=== PATIENT | female | born 1960 | race Two or more races ===

== ENCOUNTER 2025-04-27 11:45 | Inpatient (IN) | payer BC, OTHER ==
[2025-04-23 15:13] LABS: Urine Protein, UAD Negative (Negative)
[2025-04-23 15:14] LABS: Hematocrit 41.3 % (36.0-46.0); Hemoglobin 14.4 g/dL (12.2-16.2); Mean Corpuscular Hemoglobin 30.5 pg (28.0-32.0); Mean Corpuscular Volume 87.7 fL (80.0-100.0); Nucleated Red Blood Cells % 0.1 %
[2025-04-23 15:27] LABS: INR 1.01 (0.9-1.15); Partial Thromboplastin Time 26.9 SEC (24.5-34.5); Prothrombin Time 10.7 sec (9.3-11.8)
[2025-04-23 15:43] LABS: Alanine Aminotransferase 15 U/L (7-40); Albumin 4.8 g/dL (3.2-4.8); Alkaline Phosphatase 112 U/L (46-116); Anion Gap 8 (5-15); BUN/Creatinine Ratio 18.2 (10.0-20.0); Blood Urea Nitrogen 12 mg/dL (9-23); Calcium 10.3 mg/dL (8.7-10.4); Carbon Dioxide 27 mmol/L (20-31); Chloride 103 mmol/L (98-107); Glucose 90 mg/dL (74-106); Potassium 4.0 mmol/L (3.5-5.1); Sodium 138 mmol/L (136-145); Total Protein 7.2 g/dL (5.7-8.2)
[2025-04-23 15:44] LABS: Bilirubin, Total 0.8 mg/dL (0.2-1.0)
[~2025-04-27] VITALS: Ht 153 cm; Wt 92.5 kg
[~2025-04-27 11:45] MED LIST: AMIO200T33 PO; AML5T PO; APIX5TAB PO; EZET10TA22 PO; METF-371 PO; METO-289 PO
[2025-04-27] MEDS: ceFAZolin 2 GM/D5W50ml 50 ML IV ONE (12:08)
[2025-04-27] MEDS: TRANEXAMIC ACID 20 ML ONE (13:02)
[2025-04-27] MEDS: VANCOMYCIN HCL 1000 MG VL ONE (13:04)
[2025-04-27] MEDS: CEFEPIME 1GM/ 50ML 50 ML IV ONE (13:17)
[2025-04-27] MEDS: BUPIVACAINE 0.5% P/F INJ 10 ML VIAL ONE (13:35)
[2025-04-27] MEDS ORDERED: fentaNYL CITRATE 100 MCG/2 ML VL ONE (13:38)
[2025-04-27] MEDS ORDERED: MIDAZOLAM HCL 2MG/2ML 2ml VIAL (1mg/ml) ONE (13:38)
[2025-04-27] MEDS: TETRACAINE 1% INJ 2 ML VIAL IJ ONE (13:42)
[2025-04-27] MEDS: LACTATED RINGER'S 1,000 ML IV SCH (13:45)
[2025-04-27] MEDS ORDERED: ceFAZolin 1GM/50ML 50 ML IV SCH (13:45)
[2025-04-27] MEDS ORDERED: HYDROmorphone HCL 2 MG/ML VL/or syr IV PRN ×2 (13:45→15:00)
[2025-04-27] MEDS ORDERED: NITROGLYCERIN 0.4 MG SL TAB SL PRN (13:45)
[2025-04-27] MEDS ORDERED: DEXTROSE (50%) 50ML SYRG IV PRN (13:45)
[2025-04-27] MEDS ORDERED: MORPHINE SULFATE INJ 2 MG/ml SYRG IV PRN (13:45)
--- NOTE | 2025-04-27 13:45 | DVHOP2 ---
Operative Report - 2 Report Details Date: 04/27/25 Preop Diagnosis: Right hip osteoarthritis Postop Diagnosis: Right hip osteoarthritis Surgeon: Randall Dominguez MD Manufacturing Production Manager: Praful FORD/ Wilbur CHRISTIANSEN Anesthesiologist: Stephanie GOOD Anesthesia: Regional Implant: [employer] R3 acetabulum cup size 50 30 mm screw x 2 size 3 polaris std offset dual mobility 36+0 Consent: The patient was informed of the risks and benefits of the procedure. These include but are not limited to complications of anesthesia, postoperative infection, incomplete relief of symptoms, recurrence of symptoms, damage to blood vessels, nerves and tendons, deep venous thrombosis, pulmonary embolism and possible need for repeat surgery in the future. Estimated Blood Loss: 300 cc Name of Procedure Performed Right total hip replacement with computer navigation Procedure Details Procedure Details: FINDINGS: Extensive degenerative disease with grade IV changes, patient short about 1/2 inch INDICATION: This patient has failed non-operative treatments for hip arthritis and is now indicated for a total hip replacement. Preoperatively in the waiting area as well as in the office, I had a long discussion with the patient regarding the plan, the expected outcome, the risks, benefits, and alternatives of surgery. The risks include, but are not limited to, infection (which may require future surgery and removal of implants) , bleeding (which may require a transfusion), damage to nerves, arteries, veins, tendons, muscles and other adjacent structures. Also discussed the possibilities of dislocation, leg-length discrepancy, intraoperative fractures, implant loosening, heterotopic bone formation, and revision for variety of reasons, and medical complications etc. This was discussed at length and consent has been obtained. DESCRIPTION OF PROCEDURE: In the preoperative holding area, the consent was reviewed and the appropriate extremity was verified by the patient and marked with my initials. The patient was then transferred to the operating theatre. Appropriate anesthetia was induced. All bony prominences were well padded. A time out was performed verifying the side and site of surgery according to standard protocol. Preoperative antibiotics were given. Tranexamic acid was given. The patient was then placed in the lateral decubitus position and fixed with rigid pelvic fixation. All bony prominences were well padded and an axillary roll was placed. The affected hip area was then prepped and draped in the usual sterile fashion. Using an 11-blade, three stab incisions were made over the iliac crest. Two threaded guide pins were inserted into the crest confirming to be in bone. The pelvic array was attached to the pins and tightened. We made a standard posterolateral incision sharply through the skin and carried our dissection down through subcutaneous tissue to the underlying fascia achieving hemostasis where necessary. We incised the fascia in line with our incision. We identified and protected the sciatic nerve. We took down the external rotators and hip capsule from their insertion into the greater trochanter, tagged them and retracted them posteriorly for further protection of the sciatic nerve. A check point was placed into the greater trochanter and the hip center and leg length length were registered. We then dislocated the femoral head and performed an osteotomy of the femoral neck in accordance with our pre-operative plan. The labrum was excised with a long-handle knife, and we exposed the acet abular rim and cotyloid fossa. We then reamed up to our final size in accordance with the preoperative plan. We copiously irrigated and then impacted the final cup into position. We confirmed the position with the robotic navigation guidance. We placed two acetabular dome screws into the posterior-superior quadrant in the usual fashion. We irrigated the cup and impacted the liner, checking to make sure it was well seated. Attention was then turned to the femur. We used a box osteotome followed by a canal finder to gain entry to the canal. Intramedullary contents were suctioned and care was taken to ensure they did not touch the tissues. We sequentially reamed until good cortical contact, then broached up to out final size. We trialed with the appropriate femoral neck and head and reduced the hip. The hip was taken through a full range of motion. The hip soft tissues were examined in extension and external rotation, the anterior capsule and IT band were palpated, and combined anteversion was determined to be 40 degrees. The hip was stable at maximum flexion, at 90 degrees of flexion and 45 degrees of internal rotation and the position of sleep. Leg lengths were restored as shown using the computer navigation, and the trial LTC matched preoperative and intraoperative templating. The hip was then dislocated and trial components removed. We copiously irrigated the wound and impacted the final femoral stem into position. The femoral head was impacted onto a clean and dry trunion and confirmed to be seat ed. The hip was reduced ensuring to tissues in the acetabular cup. We again brought it through a full functional range of motion and there was no evidence for dislocation, instability, or impingement. The checkpoint was removed. A dilute betadine solution (17.5mL in 500mL saline) was used to wash the joint and left to sit for 3 minutes. This was then irrigated out with copious amounts of pulse lavage. We sprinkled 1g vancomycin powder below the fascia and 1g above the fascia. We copiously irrigated the wound and soft tissues. The short external rotators and capsule were repaired to the greater trochanter through drill holes, and the quadratus was repaired. We palpated the sciatic nerve in continuity without tension. The fascia was closed with vicryl and a barbed suture. We closed over the fascia with vicryl suture and re-approximated the skin with angel. A sterile dressing was placed. We returned the patient to the supine position. We verified all lower extremity compartments were soft and compressible and that we had intact distal pulses and checked our leg length yazidism. We took an AP Pelvis in the operating room, which we reviewed prior to transfer. The patient was then transferred to the recovery room in stable condition. Condition Good Disposition Still a Patient RANDALL DOMINGUEZ MD Apr 27, 2025 13:45
[2025-04-27] MEDS ORDERED: KETAMINE 50mg/ML 1ml syringe ONE (14:23)
[2025-04-27] MEDS: BUPIVACAINE 0.25% INJ 50ML VIAL ONE (14:33)
[2025-04-27] MEDS: MORPHINE SULF PF 5 MG/10 ML VIAL ONE (14:34)
[2025-04-27] MEDS: KETOROLAC TROMETH 30 MG/ML 1ML VIAL ONE (14:35)
[2025-04-27] MEDS ORDERED: hydrALAZINE HCL 20 MG/ML VL IV PRN (15:00)
[2025-04-27] MEDS ORDERED: MIDAZOLAM HCL 2MG/2ML 2ml VIAL (1mg/ml) IV PRN (15:00)
[2025-04-27] MEDS: ONDANSETRON HCL 4 MG/2 ML VIAL IV ONE (15:00)
[2025-04-27] MEDS: ACCU-CHEK COMFORT CURVE STRIP VI ONE (15:00)
[2025-04-27] MEDS ORDERED: MORPHINE SULFATE 4 MG/ML SYR/VIAL IV PRN (15:00)
[2025-04-27 15:40] VITALS: PULSE 49; RESP 12; O2SAT 100
[2025-04-27 15:50] VITALS: PULSE 49; RESP 13; O2SAT 100
[2025-04-27] MEDS: OXYCODONE W/ ACETAMINOPHEN 5/325MG TABLET PO PRN (15:51)
--- NOTE | 2025-04-27 16:14 | DVH ---
CLINICAL INDICATION: sp Right LIZA TECHNIQUE: XY PELVIS AP Comparison: None FINDINGS/IMPRESSION: : There is no evidence of acute fracture or dislocation. Expected findings post right hip arthroplasty. Moderate to severe degenerative changes of the left hip.
[2025-04-27 16:40] VITALS: PULSE 49; RESP 12; O2SAT 100
[2025-04-27] MEDS: InsuLIN REG 1unit/0.01ml Soln (100units/ml) SC SCH ×2 (17:00→21:30)
[2025-04-27] MEDS: ACCU-CHEK COMFORT CURVE STRIP VI SCH (17:04)
[2025-04-27 17:20] VITALS: BP 133/82; PULSE 58; RESP 18; TEMP 97.3; O2SAT 96
[2025-04-27 20:00] VITALS: PULSE 57; PULSE 62; RESP 18; O2SAT 95
[2025-04-27] MEDS: ONDANSETRON HCL 4 MG/2 ML VIAL IV PRN (20:09)
[2025-04-27] MEDS: ceFAZolin 1GM/50ML 50 ML IV SCH (20:09)
[2025-04-27 21:00] VITALS: BP 114/71; PULSE 62; RESP 20; TEMP 97.1; O2SAT 94
[2025-04-27] MEDS: DOCUSATE SOD 100 MG CAP PO SCH (21:23)
[2025-04-27] MEDS: AMIODARONE HCL 200 MG TAB PO SCH (21:23)
[2025-04-28] VITALS (8 sets, daily range): BP systolic 103–138; BP diastolic 60–73; PULSE 64–83; RESP 16–20; TEMP 97.2–98.2; O2SAT 94–97
[2025-04-28] MEDS: METOPROLOL SUCCINATE XL 50 MG TAB PO SCH (06:09)
[2025-04-28 06:11] LABS: Hematocrit 35.0 % (36.0-46.0); Hemoglobin 12.2 g/dL (12.2-16.2)
[2025-04-28 06:33] LABS: Albumin 3.9 g/dL (3.2-4.8); Anion Gap 9 (5-15); BUN/Creatinine Ratio 21.7 (10.0-20.0); Bilirubin, Total 0.8 mg/dL (0.2-1.0); Blood Urea Nitrogen 15 mg/dL (9-23); Calcium 9.6 mg/dL (8.7-10.4); Carbon Dioxide 24 mmol/L (20-31); Chloride 106 mmol/L (98-107); Potassium 4.4 mmol/L (3.5-5.1); Sodium 139 mmol/L (136-145); Total Protein 6.0 g/dL (5.7-8.2)
[2025-04-28 06:35] LABS: Alanine Aminotransferase 198 U/L (7-40); Alkaline Phosphatase 146 U/L (46-116); Glucose 160 mg/dL (74-106)
--- NOTE | 2025-04-28 07:59 | DVHPN2 ---
Progress Note Date Seen: Apr 28, 2025 Medical Necessity Reason Pt with a Central, PICC or Fol: No Objective vital signs Vital Sign Date Time Temp Pulse Resp B/P (MAP) Pulse Ox O2 Delivery O2 Flow Rate FiO2 04/28/25 06:09 83 103/64 04/28/25 05:00 97.6 20 94 97.6 04/27/25 20:00 Room Air* 0 21 Total Intake and Output 04/27/25 04/27/25 04/28/25 15:00 23:00 07:00 Intake Total 100 ml 50 ml 300 ml Balance 100 ml 50 ml 300 ml medications Current Medications Medications Dose Ordered Sig/Augustin Route Start Time Stop Time Status Last Admin Dose Admin Cefepime HCl 50 ml @ 12.5 mls/hr DAILY IV 04/28/25 10:00 Amiodarone HCl 100 mg BID PO 04/27/25 22:00 04/27/25 21:23 100 MG Amlodipine Besylate 5 mg DAILY PO 04/28/25 10:00 Apixaban 5 mg BID PO 04/28/25 22:00 EZETIMIBE 10 mg DAILY PO 04/28/25 10:00 Metoprolol Succinate 50 mg QAM PO 04/28/25 07:00 Lactated Ringer's 1,000 ml @ 100 mls/hr Q10H IV 04/27/25 13:45 Cefazolin Sodium 50 ml @ 50 mls/hr Q6H IV 04/27/25 13:45 04/28/25 02:44 Cancel Oxycodone/ Acetaminophen 1 tab Q4HP PRN PO 04/27/25 13:45 04/27/25 15:51 1 TAB Hydromorphone HCl 1 mg Q2HP PRN IV 04/27/25 13:45 Ondansetron HCl 4 mg Q6HP PRN IV 04/27/25 13:45 04/27/25 20:09 4 MG Docusate Sodium 100 mg Q12HR PO 04/27/25 22:00 04/27/25 21:23 100 MG Nitroglycerin 0.4 mg Q5MINP PRN SL 04/27/25 13:45 Morphine Sulfate 2 mg Q30M PRN IV 04/27/25 13:45 Diagnostic Test (Pha) 1 strip ACHS 04/27/25 17:00 04/28/25 06:34 1 STRIP Insulin Human Regular HS SC 04/27/25 22:00 Insulin Human Regular AC SC 04/27/25 17:00 Dextrose 50 ml UD PRN IV 04/27/25 13:45 Cefazolin Sodium 50 ml @ 50 mls/hr Q6H IV 04/27/25 19:45 04/28/25 08:44 04/28/25 06:57 50 MLS/HR Examination: GENERAL:Normal, MSK:Abnormal laboratory and microbiology Laboratory Tests 04/28/25 05:43 04/23/25 15:00 Test 04/28/25 05:43 Range/Units Serum Glucose 160 H 74-106 mg/dL Problem List/Assessment/Plan Problem List/Assessment/Plan 64 YEAR OLD FEMALE WHO IS S/P RIGHT LIZA POD 1 1. PAIN CONTROL 2. PHYSICAL THERAPY 3. DVT PPX 4. D/C PLANNING FOR HOME TOMORROW WITH HOME HEALTH AND IN HOME PT Plan discussed with: Patient Date of Service: Apr 28, 2025 Billing Provider: PAULETTE DOMINGUEZ MD Common Visit Codes: NOT BILLABLE MELANI DE LA O NP Apr 28, 2025 07:59
[2025-04-28] MEDS: CEFEPIME 1GM/ 50ML 50 ML IV SCH (09:31)
[2025-04-28] MEDS: EZETIMIBE 10 MG TAB PO SCH (09:33)
[2025-04-28] MEDS ORDERED: HYDROmorphone HCL 2 MG/ML VL/or syr IV PRN (10:45)
[2025-04-28] MEDS ORDERED: DEXTROSE (50%) 50ML SYRG IV PRN (10:45)
--- NOTE | 2025-04-28 10:46 | DVHINCON2 ---
Date Seen: Apr 28, [address] DOMINGUEZ Family History: Hypertension Allergies: Coded Allergies: NO KNOWN ALLERGIES (Unverified , 04/23/25) Home Meds Reported Medications Metformin Hydrochloride (Metformin Hcl) 850 Mg Tab, 850 MG PO DAILY, TAB 04/23/25 Ezetimibe (Zetia) 10 Mg Tab, 10 MG PO DAILY, TAB 04/23/25 Amlodipine Besylate (NORVASC TABLET) 5 Mg Tb, 5 MG PO DAILY, TAB 04/23/25 Apixaban Base (ELIQUIS) 5 Mg Tab, 5 MG PO BID, TAB 04/23/25 Amiodarone Hcl (Amiodarone Hcl) 200 Mg Tab, 0.5 TAB PO BID, TAB 04/23/25 Metoprolol Succinate (Metoprolol Succinate Er) 50 Mg Tab, 50 MG PO QAM, TAB 04/23/25 Current Medications Current Medications Medications (Trade) Dose Ordered Sig/Augustin Route PRN Reason Start Time Stop Time Status Last Admin Cefepime HCl 50 ml @ 12.5 mls/hr DAILY IV 04/28/25 10:00 04/28/25 09:31 Amiodarone HCl (Cordarone Tablet) 100 mg BID PO 04/27/25 22:00 04/28/25 09:32 Amlodipine Besylate (Norvasc Tablet) 5 mg DAILY PO 04/28/25 10:00 04/28/25 09:32 Apixaban (Eliquis) 5 mg BID PO 04/28/25 22:00 EZETIMIBE (Zetia) 10 mg DAILY PO 04/28/25 10:00 04/28/25 09:33 Metoprolol Succinate (Toprol Xl) 50 mg QAM PO 04/28/25 07:00 Lactated Ringer's 1,000 ml @ 100 mls/hr Q10H IV 04/27/25 13:45 Cefazolin Sodium 50 ml @ 50 mls/hr Q6H IV 04/27/25 13:45 04/28/25 02:44 Cancel Oxycodone/ Acetaminophen (Percocet 5/ 325MG Tablet) 1 tab Q4HP PRN PO MODERATE PAIN 04/27/25 13:45 04/27/25 15:51 Hydromorphone HCl (Dilaudid Injection) 1 mg Q2HP PRN IV SEVERE PAIN (7-10 PAIN SCALE) 04/27/25 13:45 Ondansetron HCl (Zofran) 4 mg Q6HP PRN IV NAUSEA / VOMITING 04/27/25 13:45 04/27/25 20:09 Docusate Sodium (Colace Capsule) 100 mg Q12HR PO 04/27/25 22:00 04/28/25 09:32 Nitroglycerin (Ntrostat Sublingual) 0.4 mg Q5MINP PRN SL FOR CHEST PAIN 04/27/25 13:45 Morphine Sulfate 2 mg Q30M PRN IV FOR CHEST PAIN 04/27/25 13:45 Diagnostic Test (Pha) (Accu-Chek Comfort Curve T) 1 strip ACHS 04/27/25 17:00 04/28/25 06:34 Insulin Human Regular (InsuLIN R) HS SC 04/27/25 22:00 Insulin Human Regular (InsuLIN R) AC SC 04/27/25 17:00 Dextrose 50 ml UD PRN IV Blood Sugar LESS THAN 60 04/27/25 13:45 Hydralazine HCl (Apresoline Injection) 5 mg Q10M PRN IV SBP>160 04/27/25 15:00 04/27/25 15:51 DC Morphine Sulfate 2 mg Q2HPRN PRN IV BREAKTHROUGH PAIN (7-10) 04/27/25 15:00 04/27/25 15:08 DC Midazolam HCl (Versed Injection) 1 mg Q10M PRN IV ANXIETY 04/27/25 15:00 04/27/25 15:41 DC Ephedrine Sulfate (ePHEDrine SULFATE) 10 mg Q10M PRN IV SBP LESS THAN 90 04/27/25 15:00 04/27/25 15:41 DC Hydromorphone HCl (Dilaudid Injection) 0.5 mg Q10M PRN IV SEVERE PAIN (7-10 PAIN SCALE) 04/27/25 15:00 04/27/25 15:41 DC Cefazolin Sodium 50 ml @ 50 mls/hr Q6H IV 04/27/25 19:45 04/28/25 08:44 DC 04/28/25 06:57 Vital Signs Vital Signs Date Time Temp Pulse Resp B/P (MAP) Pulse Ox O2 Delivery O2 Flow Rate FiO2 04/28/25 09:32 113/68 04/28/25 09:14 98.1 66 16 95 98.1 04/27/25 20:00 Room Air* 0 21 Labs/Diagnostic Data Labs Test 04/28/25 06:25 04/28/25 05:43 04/23/25 15:00 Range/Units POC Glucose 156 H 70-106 mg/dl Hemoglobin 12.2 # 12.2-16.2 g/dL Hematocrit 35.0 #L 36.0-46.0 % Sodium Level 139 136-145 mmol/L Potassium Level 4.4 3.5-5.1 mmol/L Chloride Level 106 98-107 mmol/L Carbon Dioxide Level 24 20-31 mmol/L Anion Gap 9 5-15 Blood Urea Nitrogen 15 9-23 mg/dL Creatinine 0.69 0.550-1.02 mg/dL Glomerular Filtration Rate Calc 98 >90 mL/min BUN/Creatinine Ratio 21.7 H 10.0-20.0 Serum Glucose 160 H 74-106 mg/dL Calcium Level 9.6 8.7-10.4 mg/dL Total Bilirubin 0.8 0.2-1.0 mg/dL Aspartate Amino Transferase (AST) 215 H 13-40 U/L Alanine Aminotransferase (ALT) 198 H 7-40 U/L Alkaline Phosphatase 146 H 46-116 U/L Total Protein 6.0 5.7-8.2 g/dL Albumin 3.9 3.2-4.8 g/dL White Blood Count 5.3 4.4-10.8 10^3/uL Red Blood Count 4.71 4.0-5.20 10^6/uL Mean Corpuscular Volume 87.7 80.0-100.0 fL Mean Corpuscular Hemoglobin 30.5 28.0-32.0 pg Mean Corpuscular Hemoglobin Concent 34.8 32.0-36.0 g/dL Red Cell Distribution Width 13.5 11.8-14.3 % Platelet Count 232 140-450 10^3/uL Mean Platelet Volume 8.8 6.9-10.8 fL Neutrophils (%) (Auto) 53.1 37.0-80.0 % Lymphocytes (%) (Auto) 39.8 10.0-50.0 % Monocytes (%) (Auto) 5.2 0.0-12.0 % Eosinophils (%) (Auto) 0.7 0.0-7.0 % Basophils (%) (Auto) 1.2 0.0-2.0 % Neutrophils # (Auto) 2.8 1.6-8.6 10 ^3/uL Lymphocytes # (Auto) 2.1 0.4-5.4 10 ^3/uL Monocytes # (Auto) 0.3 0-1.3 10 ^3/uL Eosinophils # (Auto) 0 0-0.8 10 ^3/uL Basophils # (Auto) 0.1 0-0.2 10 ^3/uL Nucleated Red Blood Cells 0.1 % Prothrombin Time 10.7 9.3-11.8 sec Prothrombin Time INR 1.01 0.9-1.15 Activated Partial Thromboplast Time 26.9 24.5-34.5 SEC Urine Color Light-yellow Yellow Urine Clarity Clear Clear Urine pH 6.5 5.0-9.0 Urine Specific [place] 1.011 1.001-1.035 Urine Protein Negative Negative Urine Ketones Negative Negative Urine Blood Negative Negative /uL Urine Nitrite Negative Negative Urine Bilirubin Negative Negative Urine Urobilinogen Normal Negative mg/dL Urine Leukocyte Esterase Trace Negative /uL Urine RBC 1 0 - 4 /hpf Urine Microscopic WBC 1 0-5 /HPF Urine Squamous Epithelial Cells Few <5 /hpf Urine Bacteria None seen None Seen /hpf Urine Glucose Normal Normal mg/dL Assessment SEE DICTATED NOTE Plan discussed with: Patient Date of Service: Apr 28, 2025 Billing Provider: YG GARCIA MD Common Visit Codes: [id number] INP/OBS CARE (HIGH) Secondary Visit Codes: [id number] CARE PLAN 30 MINUTES YG GARCIA MD Apr 28, 2025 10:46
--- NOTE | 2025-04-28 11:27 | DVHINCON2 ---
DATE OF CONSULTATION: 04/28/2025 INTERNAL MEDICINE CONSULT HISTORY OF PRESENT ILLNESS: The patient is a 64-year-old lady who is admitted after she underwent surgery on the right hip for DJD of the hip. The patient at this time complains of dizziness on ambulation. No chest pain. No shortness of breath. No nausea or vomiting. REVIEW OF SYSTEMS: Review of rest of other systems is currently negative. PAST MEDICAL HISTORY: Significant for hypertension, likely atrial fibrillation, and diet-controlled diabetes mellitus. HOME MEDICATIONS: Include metoprolol, amiodarone, Eliquis, amlodipine, metformin, and Zetia. ALLERGIES: No known drug allergies. SOCIAL HISTORY: Denies smoking or alcohol. Lives at home with her . FAMILY HISTORY: Negative. PHYSICAL EXAMINATION: GENERAL: The patient is awake and alert. VITAL SIGNS: Temperature of 98.1, pulse 66 per minute, blood pressure 113/68. SHEENT: Unremarkable. NECK: There is no JVD. No pedal edema. LUNGS: Equal bilaterally. No added sounds. CARDIOVASCULAR SYSTEM: S1 and S2 is regular. No murmurs. ABDOMEN: Soft. There is no organomegaly. NEUROLOGIC: Nonfocal. MUSCULOSKELETAL: There is a dressing at the site of the right hip surgery. ASSESSMENT AND PLAN: * Hypertension, for which the patient's amlodipine will be stopped and metoprolol dose will be adjusted. * Hyperlipidemia. * Diabetes mellitus. A1c will be checked and she will be placed on sliding scale insulin. * Transaminitis, for which the liver functions will be monitored. * Status post right hip surgery for DJD of the hip. The patient will be placed on physical therapy and pain medications. * Advance care planning, the patient is a full code- TIME SPENT: 18 minutes. MD CORY Miranda/OTF TID: [id number] RECEIPT: [id number] MTDD
[2025-04-28] MEDS: ACCU-CHEK COMFORT CURVE STRIP VI SCH (11:30)
[2025-04-28] MEDS: InsuLIN REG 1unit/0.01ml Soln (100units/ml) SC SCH (11:30)
[2025-04-28] MEDS ORDERED: PROPOFOL 10 MG/ML 100ML BOTTLE IV ONE (13:30)
[2025-04-28] MEDS ORDERED: PHENYLEPHRINE INJ 10 MG/ML 10ML VIAL IV ONE (13:32)
[2025-04-28] MEDS: APIXABAN 5 MG TAB PO SCH (22:14)
[2025-04-29] VITALS (8 sets, daily range): BP systolic 113–168; BP diastolic 67–85; PULSE 71–90; RESP 16–20; TEMP 98.5–99.3; O2SAT 93–98
[2025-04-29] MEDS: METOPROLOL SUCCINATE XL 50 MG TAB PO SCH (06:42)
[2025-04-29 07:33] LABS: Hematocrit 31.9 % (36.0-46.0); Hemoglobin 11.0 g/dL (12.2-16.2); Mean Corpuscular Hemoglobin 30.8 pg (28.0-32.0); Mean Corpuscular Volume 88.9 fL (80.0-100.0); Nucleated Red Blood Cells % 0.0 %
--- NOTE | 2025-04-29 07:48 | DVHPN2 ---
Progress Note Date Seen: Apr 29, 2025 Medical Necessity Reason Pt with a Central, PICC or Fol: No Subjective Patient reports: No new complaints Objective vital signs Vital Sign Date Time Temp Pulse Resp B/P (MAP) Pulse Ox O2 Delivery O2 Flow Rate FiO2 04/29/25 06:42 90 128/70 04/29/25 05:00 99.3 16 93 99.3 04/28/25 20:00 Room Air* 0 21 Total Intake and Output 04/28/25 04/28/25 04/29/25 15:00 23:00 07:00 Intake Total 100 ml 300 ml 425 ml Output Total 400 ml 300 ml Balance 100 ml -100 ml 125 ml medications Current Medications Medications Dose Ordered Sig/Augustin Route Start Time Stop Time Status Last Admin Dose Admin Cefepime HCl 50 ml @ 12.5 mls/hr DAILY IV 04/28/25 10:00 04/28/25 09:31 12.5 MLS/HR Amiodarone HCl 100 mg BID PO 04/27/25 22:00 04/28/25 22:14 100 MG Apixaban 5 mg BID PO 04/28/25 22:00 04/28/25 22:14 5 MG EZETIMIBE 10 mg DAILY PO 04/28/25 10:00 04/28/25 09:33 10 MG Lactated Ringer's 1,000 ml @ 100 mls/hr Q10H IV 04/27/25 13:45 Cefazolin Sodium 50 ml @ 50 mls/hr Q6H IV 04/27/25 13:45 04/28/25 02:44 Cancel Oxycodone/ Acetaminophen 1 tab Q4HP PRN PO 04/27/25 13:45 04/29/25 04:38 1 TAB Ondansetron HCl 4 mg Q6HP PRN IV 04/27/25 13:45 04/27/25 20:09 4 MG Docusate Sodium 100 mg Q12HR PO 04/27/25 22:00 04/28/25 22:14 100 MG Nitroglycerin 0.4 mg Q5MINP PRN SL 04/27/25 13:45 Morphine Sulfate 2 mg Q30M PRN IV 04/27/25 13:45 Dextrose 50 ml UD PRN IV 04/27/25 13:45 Cancel Hydromorphone HCl 1 mg Q3HPRN PRN IV 04/28/25 10:45 Metoprolol Succinate 25 mg QAM PO 04/29/25 07:00 04/29/25 06:42 25 MG Diagnostic Test (Pha) 1 strip ACHS 04/28/25 11:30 04/29/25 06:42 1 STRIP Insulin Human Regular ACHS SC 04/28/25 11:30 04/28/25 11:30 3 UNITS Dextrose 50 ml UD PRN IV 04/28/25 10:45 Examination: GENERAL:Normal, MSK:Abnormal laboratory and microbiology Laboratory Tests 04/29/25 05:37 Test 04/29/25 05:37 Range/Units Serum Glucose Pending Problem List/Assessment/Plan Problem List/Assessment/Plan 64 YEAR OLD FEMALE WHO IS S/P RIGHT LIZA POD 2 1. PAIN CONTROL 2. PHYSICAL THERAPY 3. DVT PPX 4. AQUACEL DRESSING TO REMAIN IN PLACE UNTIL FIRST POSTOP VISIT 5. FOLLOW UP IN 2 WEEKS AT [facility] WITH DR. DOMINGUEZ SCHEDULED ON 05/13/2025 AT 10:30 6. PRESCRIPTIONS FOR PERCOCET, KEFLEX AND COLACE SENT ELECTRONICALLY TO [facility] IN [place] ON 04/23/2025 7. PATIENT IS CLEAR FOR DISCHARGE FROM ORTHOPEDIC STANDPOINT WITH THE FOLLOWING DISCHARGE RECOMMENDATIONS: POSTOPERATIVE Posterior Total Hip INSTRUCTIONS Activity: 1. You can bear as much weight as you tolerate on your hip unless specifically instructed otherwise. You may use the walking aid which you were discharged with and switch to a cane whenever you feel comfortable doing so. You should use an assistive device until you can walk comfortably without it. Keep in mind that every patient moves at their own speed of recovery so take your time. 2. A physical therapist will visit you at home. 3. Although guarantees against a dislocation do not exist, the hip was noted to be sufficiently stable in surgery. Below are motions that you should dischargenot do for 4-6 weeks, depending on the surgical approach used. If there are questions, please call the office. a. Bend forward past 90 degrees b. Sit on a regular low chair, couch, car seat etc... c. Cross your legs d. Use a regular low toilet seat. e. Sleep on your stomach or on either side. 3. High impact activity such as jumping, aerobics, tennis, and skiing are not permitted during the first 3 months after surgery. These activities can contribute to accelerated wear and should be done with caution after this time. Discuss this with your surgeon if you have questions. 4. Although a bath or whirlpool is NOT permitted during the first 2-3 weeks, you may shower as soon as you get home from the hospital provided you are able to keep your bandage clean and dry and there is no wound drainage. If you are unable to place a secured covering over your bandage bed bath/sponge bath may likely be the more appropriate option. 5. Swimming is not permitted until the wound is healed, which typically occurs approximately 3-4 weeks after surgery. Wound Management: If the wound is draining please change the gauze pad on the wound until it stops. If drainage persists past 10 days please notify our office. If there is a sticky gel dressing over your wound, you may leave this in place for as long as it is clean and dry. If it becomes loose or causes skin irritation, it is OK to remove it and place clean gauze over your wound. 1. You might notice some bruising around the surgical site, this is normal. 2. Check your temperature on a daily basis. Please note that a low-grade temp below 101 is not uncommon after surgery especially during the first 3 days. Notify the office if your temperature spikes above 101.5 after the 3rd post- operative date. 3. Many patients experience significant swelling in the thigh, this may extend below the knee and sometimes to the ankle. Swelling increases during the first week and subsides during the following week. 4. Provided you have been on a blood thinner since surgery and have been up and about at least three times per day, the risk of a blood clot is low and this swelling is an expected part of recovery. It will largely or completely resolve by your first post-operative visit. 5. [place], if present, will be removed at 2 weeks during initial post-op visit. Medications: 1. You will be discharged with pain medication, Aspirin as a blood thinner and sometimes an anti-inflammatory medication such as Celebrex or Mobic might be prescribed. Please follow the instructions regarding these medicines as provided by your nurse at the hospital. 2. Narcotic pain medication has side effects, including constipation. Please ensure you continue to take stool softeners (Colace, Senna) while taking your pain medication to help protect against constipation. Getting up and moving around at least a few times per day helps with this also. 3. Lovenox 40 Sq x 12 days followed by one regular strength 325 mg coated aspirin daily for 4 weeks after surgery. Then, take one baby aspirin, 81 mg daily for 6 weeks more. A major, yet preventable, complication of Orthopaedic Surgery is a blood clot (DVT). It is important not to miss any doses of this important medication. 4. You should restart all of your prescription medications once discharged unless specifically instructed otherwise. 5. Herbal supplements may be restarted 2 weeks after surgery. Miscellaneous issues: 1. Driving is not permitted within the first 2 weeks. 2. Your first postoperative visit will take place 2weeks after discharge. Please call the office to arrange this appointment. 3. Antibiotic preventative treatment is required before dental or other invasive procedures. Please ask your surgeon about this at your first postoperative visit. Your hip replacement contains metal which may activate metal detectors. You may wish to carry a letter from your surgeon to communicate this to security personnel. If you experience chest pain, shortness of breath or severe painful calf swelling, go to the nearest emergency room to be evaluated. Please call our office once your situation is stabilized. 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
[2025-04-29 07:50] LABS: Albumin 3.8 g/dL (3.2-4.8); Anion Gap 11 (5-15); BUN/Creatinine Ratio 20.9 (10.0-20.0); Bilirubin, Total 0.6 mg/dL (0.2-1.0); Blood Urea Nitrogen 14 mg/dL (9-23); Calcium 9.0 mg/dL (8.7-10.4); Carbon Dioxide 25 mmol/L (20-31); Chloride 106 mmol/L (98-107); Potassium 3.7 mmol/L (3.5-5.1); Sodium 142 mmol/L (136-145); Total Protein 6.0 g/dL (5.7-8.2)
[2025-04-29 07:52] LABS: Alanine Aminotransferase 97 U/L (7-40); Alkaline Phosphatase 123 U/L (46-116); Glucose 118 mg/dL (74-106)
--- NOTE | 2025-04-29 10:45 | DVHDS2 ---
Discharge Summary Date of Admission Apr 27, 2025 at 13:35 Date of Discharge: Apr 29, 2025 Labs/Diagnostic Data: Laboratory Results Test 04/29/25 06:24 04/29/25 05:37 04/23/25 15:00 POC Glucose 129 mg/dl (70-106) White Blood Count 6.6 10^3/uL (4.4-10.8) Red Blood Count 3.59 10^6/uL (4.0-5.20) Hemoglobin 11.0 g/dL (12.2-16.2) Hematocrit 31.9 % (36.0-46.0) Mean Corpuscular Volume 88.9 fL (80.0-100.0) Mean Corpuscular Hemoglobin 30.8 pg (28.0-32.0) Mean Corpuscular Hemoglobin Concent 34.6 g/dL (32.0-36.0) Red Cell Distribution Width 13.7 % (11.8-14.3) Platelet Count 178 10^3/uL (140-450) Mean Platelet Volume 9.6 fL (6.9-10.8) Neutrophils (%) (Auto) 67.8 % (37.0-80.0) Lymphocytes (%) (Auto) 21.6 % (10.0-50.0) Monocytes (%) (Auto) 10.2 % (0.0-12.0) Eosinophils (%) (Auto) 0.1 % (0.0-7.0) Basophils (%) (Auto) 0.3 % (0.0-2.0) Neutrophils # (Auto) 4.4 10 ^3/uL (1.6-8.6) Lymphocytes # (Auto) 1.4 10 ^3/uL (0.4-5.4) Monocytes # (Auto) 0.7 10 ^3/uL (0-1.3) Eosinophils # (Auto) 0 10 ^3/uL (0-0.8) Basophils # (Auto) 0 10 ^3/uL (0-0.2) Nucleated Red Blood Cells 0.0 % Sodium Level 142 mmol/L (136-145) Potassium Level 3.7 mmol/L (3.5-5.1) Chloride Level 106 mmol/L (98-107) Carbon Dioxide Level 25 mmol/L (20-31) Anion Gap 11 (5-15) Blood Urea Nitrogen 14 mg/dL (9-23) Creatinine 0.67 mg/dL (0.550-1.02) Glomerular Filtration Rate Calc 99 mL/min (>90) BUN/Creatinine Ratio 20.9 (10.0-20.0) Serum Glucose 118 mg/dL (74-106) Hemoglobin A1c 6.0 % A1C (<5.7) Calcium Level 9.0 mg/dL (8.7-10.4) Total Bilirubin 0.6 mg/dL (0.2-1.0) Aspartate Amino Transferase (AST) 58 U/L (13-40) Alanine Aminotransferase (ALT) 97 U/L (7-40) Alkaline Phosphatase 123 U/L (46-116) Total Protein 6.0 g/dL (5.7-8.2) Albumin 3.8 g/dL (3.2-4.8) Prothrombin Time 10.7 sec (9.3-11.8) Prothrombin Time INR 1.01 (0.9-1.15) Activated Partial Thromboplast Time 26.9 SEC (24.5-34.5) Urine Color Light-yellow (Yellow) Urine Clarity Clear (Clear) Urine pH 6.5 (5.0-9.0) Urine Specific [place] 1.011 (1.001-1.035) Urine Protein Negative (Negative) Urine Ketones Negative (Negative) Urine Blood Negative /uL (Negative) Urine Nitrite Negative (Negative) Urine Bilirubin Negative (Negative) Urine Urobilinogen Normal mg/dL (Negative) Urine Leukocyte Esterase Trace /uL (Negative) Urine RBC 1 /hpf (0 - 4) Urine Microscopic WBC 1 /HPF (0-5) Urine Squamous Epithelial Cells Few /hpf (<5) Urine Bacteria None seen /hpf (None Seen) Urine Glucose Normal mg/dL (Normal) Other Laboratory Tests 04/29/25 05:37 Brief Hx & Hospital Course: see dictated note Condition at Discharge: Good Final Diagnosis/Problems List Right hip surgery Discharge Disposition: Home Discharge Instruct/Medications Diet: Cardiac 2g Na,low cholest Activity: No Restrictions, As Tolerated Follow Up/Referral: fu with pcp/ortho Medications: resume home meds rest meds ortho Scheduled Amiodarone Hcl (Amiodarone Hcl), 0.5 TAB PO BID, (Reported) Amlodipine Besylate (Norvasc Tablet), 5 MG PO DAILY, (Reported) Apixaban Base (Eliquis), 5 MG PO BID, (Reported) Ezetimibe (Zetia), 10 MG PO DAILY, (Reported) Metformin Hydrochloride (Metformin Hcl), 850 MG PO DAILY, (Reported) Metoprolol Succinate (Metoprolol Succinate Er), 50 MG PO QAM, (Reported) Discharge Statement: "Patient was advised to return to the ER or call 911 if any headaches, dizziness, shortness of breath, chest pain, abdominal pain, bleeding, fevers, or worsening of medical condition. Patient was counseled about treatment plan, medications, possible side effects, patientverbalized understanding. All questions were answered to the best of my ability. This discharge took greater then 30 minutes in planning, reviewing documentation, counseling the patient, and discussing with other team members." DME: Diagnosis: POSTOP ASSESSMENT ASSESSMENT Assessment Right hip surgery Date of Service: Apr 29, 2025 Billing Provider: YG GARCIA MD Common Visit Codes: 60255-RZY/OBS DISCH DAY >30min YG GARCIA MD Apr 29, 2025 10:45
--- NOTE | 2025-04-29 10:54 | DVHDS ---
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 The patient has a history of hypertension, diabetes, and hyperlipidemia. HOSPITAL COURSE: The patient had postop transaminitis that is now improving. The patient has been cleared for discharge by Orthopedics. A1c was 6.0. The patient will now be discharged home to be on medications as per Orthopedics and follow up with the primary and Orthopedics. FINAL DIAGNOSES: * Hypertension. * Hyperlipidemia. * Transaminitis. * Diabetes mellitus. * Status post right hip surgery for DJD of the hip. Time spent in discharge planning and review of plan with the patient and nursing was 38 minutes. MD CORY Miranda/SHAUN TID: [id number] RECEIPT: [id number]
[2025-04-29] MEDS ORDERED: ZOFR4T PO (16:38)
[2025-04-29] MEDS ORDERED: CEFEPIME 1GM/ 50ML 50 ML IV SCH (22:00)
== END 2025-04-29 17:00 | disposition home or self-care (01) | DRG 470 ==
LOC: SUR 11:45 → OVERFLOW 13:35 → TELE-CENTR 16:50
PROVIDERS: ADMIT Internal Medicine; ATTEND Internal Medicine
PROC: 8E0YXBZ Computer Assisted Procedure of Lower Extremity (ICD-10-PCS; 2025-04-27)
PROC: 0SR902Z Replacement of Right Hip Joint with Metal on Polyethylene Synthetic Substitute, Open Approach (ICD-10-PCS; principal; 2025-04-27 13:54)
DX: M16.11 Unilateral primary osteoarthritis, right hip (principal); E78.5 Hyperlipidemia, unspecified; E11.9 Type 2 diabetes mellitus without complications; I10 Essential (primary) hypertension; R74.01 Elevation of levels of liver transaminase levels; Z82.49 Family history of ischemic heart disease and other diseases of the circulatory system; Z79.899 Other long term (current) drug therapy; Z79.01 Long term (current) use of anticoagulants
CPT/HCPCS: 36415; 72170; 80053; 81001; 82962; 83036; 85014; 85018; 85025; 85610; 85730; 86850; 86900; 86901; 97110; 97116; 97163; A4565; G0378; J1815; J1885; J2250; J2405; J2704; J3490